=== PATIENT | male | born 1950 ===

== ENCOUNTER 2018-02-23 16:38 | Emergency (ER) | payer SELFPAY ==
[2018-02-23] MEDS ORDERED: Acetaminophen/Codeine 30-300mg Tablet ONE ×2 (18:03→18:07)
[2018-02-23] MEDS ORDERED: Cyclobenzaprine 10 MG TAB ONE (18:03)
== END 2018-02-23 18:16 | disposition home or self-care (01) ==
LOC: ERS 16:38
DX: M54.42 Lumbago with sciatica, left side (principal); M54.16 Radiculopathy, lumbar region; I10 Essential (primary) hypertension; Z79.899 Other long term (current) drug therapy
CPT/HCPCS: 99283